=== PATIENT | male | born 1950 | race Caucasian/White ===

== ENCOUNTER 2016-06-07 07:33 | Day surgery (SDC) | payer BC ==
[~2016-06-07] VITALS: Ht 188 cm; Wt 95.3 kg
[~2016-06-07 07:33] MED LIST: AMLO5TAB2 PO; ASCO10002 PO; ASPI325T4 PO; CEFTRIAXONE 1GM IVPB FOR OMNI 50 ML IV PRN; CINN500C PO; FENO145T PO; FENTANYL PF 100 MCG/2 ML VIAL. IV PRN; GARLIC PO; GENTAMICIN SULFATE 80 MG in IV NORMAL SALINE 100ML 100 ML IV ONE; HYDROMORPHONE 2 MG/ML VIAL. IV PRN; IV RINGERS,LACTATED 1000ML 1,000 ML IV SCH; LIDOCAINE 1% 1 ML SYRINGE. ID PRN; LISI-334 PO; MORPHINE SULFATE 2 MG/ML DISP.SYRIN. IV PRN; MULT1TAB52 PO; ONDANSETRON PF 4 MG/2 ML VIAL. IV PRN; PROCHLORPERAZINE 10 MG/2 ML VIAL. IV PRN; TAMS0.4C97 PO
[2016-06-07] MEDS ORDERED: CIPR250T30 PO (07:46)
[2016-06-07] MEDS ORDERED: IV RINGERS,LACTATED 1000ML 1,000 ML IV ONE (08:15)
[2016-06-07] MEDS ORDERED: PROPOFOL 20 ML IV ONE (09:11)
[2016-06-07] MEDS ORDERED: FENTANYL PF 100 MCG/2 ML VIAL. ONE (09:11)
[2016-06-07] MEDS ORDERED: ONDANSETRON PF 4 MG/2 ML VIAL. ONE (09:34)
[2016-06-07] MEDS ORDERED: EPHEDRINE PF IN SALINE 50 MG/5 ML DISP.SYRIN. IV ONE (09:38)
[2016-06-07] MEDS ORDERED: SEVOFLURANE 31 TO 60 MINUTES. IH ONE (09:42)
--- NOTE | 2016-06-07 10:10 | PDOC ---
BRIEF OPERATIVE NOTE Date: Jun 07, 2016 Pre-Op Diagnosis Elevated PSA Post-Op Diagnosis Same Procedure Performed Transrectal Ultrasound, ultrasound guide prostate biopsies (14) Surgeon Kamille Anesthesia Type: General Specimens Obtained 14 biopsies sent to Path Findings same Complications None Additional Remarks Tolerated well NOAH MISHRA DO Jun 07, 2016 10:09
--- NOTE | 2016-06-07 10:11 | DISCH ---
DISCHARGE INSTRUCTIONS Condition on Discharge Condition on Discharge: Stable Activity After Discharge Activity Instructions for Disc: Avoid exertion Driving Instructions after Dis: Do not drive today Diet after Discharge Diet after Discharge: Regular Wound Incision Care Other wound/incision instructi: Expect to see blood in urine next 24-48 hrs and BM Contacting the DRBladimir after DC Call your doctor for: Concerns you may have Follow-Up Follow up with: Dr Mishra will call with biopsy results NOAH MISHRA DO Jun 07, 2016 10:11
[2016-06-07 10:45] VITALS: BP 134/67
--- NOTE | 2016-06-07 11:24 | OP ---
DATE OF SURGERY: 06/07/2016 PREOPERATIVE DIAGNOSIS: Elevated prostate-specific antigen. POSTOPERATIVE DIAGNOSIS: Elevated prostate-specific antigen. PROCEDURE: Prostate ultrasound, ultrasound-guided prostate biopsies (14). SURGEON: Noah Mishra DO. ANESTHESIA: General. INDICATIONS AND JUDGMENT: This is a 65-year-old male with a history of an elevated PSA of approximately 7.2. Prior to that, his PSA had been 4.8. The normal range for him would be ____ as concerned about his PSA velocity. The PSA was repeated and once again it came back 7.2. Therefore, it was felt that he would benefit from a prostate ultrasound and needle biopsies to rule out occult prostate cancer. The procedure was explained to the patient as well as possible risks and complications. He appeared to understand and was agreeable. DESCRIPTION OF PROCEDURES: The patient was preloaded with 1 gram of Rocephin and 80 mg of gentamicin. He was taken to the operating room and placed on the operating room table in supine position, given a general anesthetic and then placed in a left lateral decubitus position with his knees tucked. A well-lubricated ultrasound probe was then advanced into the rectum. The prostate was visualized from the apex to base. The prostate volume was measured at 64 grams. There did appear to be some hypoechoic areas. The ultrasound probe was then reinserted into the rectum with the biopsy guide. Ultrasound-guided prostate biopsies were first performed on the patient's left side from apex to base from lateral to the mid gland. A total of six biopsies were performed on the left side of prostate. The ultrasound probe was then repositioned for the patient's right side of the prostate and biopsies were taken from the apex to the base and a total of eight biopsies were taken on that side. These biopsies were then submitted to Pathology. The instruments were removed. The patient tolerated the procedure well and was sent to recovery room in satisfactory condition. The patient was given discharge instruction sheet, be sent home on antibiotics and I will contact the patient with the biopsies or the pathology report was available. NOAH MISHRA DO DR: CHRIS/rea JOB#: [id number] / [id number]
--- NOTE | 2016-06-08 15:54 | PATHOLOGY ---
PATHOLOGY REPORT * * * * * * * * FINAL DIAGNOSIS: A. Prostate tissue, left apex prostate needle biopsy: - Focal glandular atrophy and mild acute and chronic inflammation. B. Prostate tissue, left mid prostate needle biopsy: - Focal glandular hyperplasia, glandular atrophy, and mild acute and chronic inflammation. C. Prostate tissue, left base prostate needle biopsy: - Focal glandular hyperplasia. D. Prostate tissue, right apex prostate needle biopsy: - Focal glandular atrophy and mild chronic inflammation. E. Prostate tissue, right mid prostate needle biopsy: - Focal glandular hyperplasia, glandular atrophy, and mild acute and chronic inflammation. F. Prostate tissue, right base prostate needle biopsy: - Benign prostatic glandular and fibromuscular tissue. COMMENT: There is no evidence of malignancy. (JPM:[email or web address]; d/t: 06/08/16) REPORT ELECTRONICALLY SIGNED BY: Sae Guerrero M.D. DATE/TIME: 06/08/2016 15:53 * * * * * * * * GROSS PATHOLOGY: A. Submitted in formalin, labeled "Jane, Jorge and left apex," are 3 needle cores of conklin tissue measuring 0.3 and 1.5 cm in length, by less than 0.1 cm in diameter. Tissue is submitted in toto in cassette A1. B. Submitted in formalin, labeled "Jane, Jorge and left mid," are 3 needle cores of conklin tissue ranging from 0.5 - 1.7 cm in length, by less than 0.1 cm in diameter. Tissue is submitted in toto in cassette B1. C. Submitted in formalin, labeled "Jane, Jorge and left base," are 2 needle cores of conklin tissue measuring 1.5 and 1.9 cm in length, by less than 0.1 cm in diameter. Tissue is submitted in toto in cassette C1. D. Submitted in formalin, labeled "Jane, Jorge and right apex," is a single needle core of conklin tissue measuring 2.4 cm in length, by less than 0.1 cm in diameter. Tissue is submitted in toto in cassette D1. E. Submitted in formalin, labeled "Jane, Jorge and right mid," are 3 needle cores of conklin tissue ranging from 1.2-1.5 cm in length, by less than 0.1 cm in diameter. Tissue is submitted in toto in cassette E1. F. Submitted in formalin, labeled "Jane, Jorge and right base," are 3 needle cores of conklin tissue ranging from 0.8-1.8 cm in length, by less than 0.1 cm in diameter. Tissue submitted in toto in cassette F1. (TTL; 06/07/2016) INITIAL CPT CODE(S): A; 22609 B; 65251 C; 57500 D; 20507 E; 08198 F; 49672 Professional services performed by [facility] [place] [address] Technical services performed by [facility] at [address] [place] [address] [address], [place] [address]. SPECIMEN(S) RECEIVED: A.Left apex prostate, needle biopsy B.Left mid prostate, needle biopsy C.Left base prostate, needle biopsy D.Right apex prostate, needle biopsy E.Right mid prostate, needle biopsy F.Right base prostate, needle biopsy CLINICAL HISTORY: Elevated PSA, enlarged prostate PATIENT: JORGE CHAPIN /AGE: 810/17/1950 (Age: 65) PATIENT #: [id number] ALT CASE #: SPECIMEN COLLECTION DATE: 06/07/2016 SPECIMEN RECEIVED DATE: 06/07/2016 [facility] - [id number] [place] [address] - PHONE: [phone] * * * END OF REPORT * * *
== END 2016-06-07 10:57 | disposition home or self-care (01) ==
LOC: SURG 07:33
PROVIDERS: ATTEND Urology
DX: R97.20 Elevated prostate specific antigen [PSA] (principal); E78.00 Pure hypercholesterolemia, unspecified; I10 Essential (primary) hypertension; Z72.89 Other problems related to lifestyle
CPT/HCPCS: 55700; 76942; 88305; C1887; J0690; J1580; J2405; J2704; J3010